=== PATIENT | male | born 1955 | race Caucasian/White ===

== ENCOUNTER 2020-06-25 10:23 | Outpatient (REF) | payer MEDICARE, SELFPAY ==
[2020-06-25 10:29] LABS: MANUAL DIFF FLAG NO
[2020-06-25 10:58] LABS: Basophils Percent Auto 0.7 % (0-2); Eosinophils Absolute Auto 0.4 X10*3/uL (0.0-0.4); Eosinophils Percent Auto 7.7 % (0-4); Hematocrit 41.7 % (42-52); Hemoglobin 13.7 g/dl (14.0-18.0); Imm Gran Abs Auto 0.01 X10*3/uL (0.00-0.03); Imm Gran Pct Auto 0.2 % (0.0-0.4); Lymphocytes Absolute Auto 1.7 X10*3/uL (1.2-4.9); Lymphocytes Percent Auto 31.2 % (20-40); Mean Corpuscular HGB Conc 32.9 g/dl (31.0-36.0); Mean Corpuscular Hemoglobin 31.7 pg (27.0-33.0); Mean Corpuscular Volume 96.5 fL (80-98); Mean Platelet Volume 10.4 fL (9.4-12.4); Monocytes Absolute Auto 0.6 X10*3/uL (0.1-1.2); Monocytes Percent Auto 11.2 % (2-11); Neutrophils Absolute Auto 2.7 X10*3/uL (2.0-8.3); Platelet Count 298 X10*3/uL (160-400); Red Blood Count 4.32 X10*6/uL (4.60-5.80); Red Cell Distribution Width 13.2 % (11.0-16.0); White Blood Count 5.5 X10*3/uL (4.8-10.8)
[2020-06-25 11:08] LABS: Glucose Urine UA NEG (NEG); Leukocyte Esterase Urine NEG (NEG); Nitrite Urine NEG (NEG); Specific Gravity - Urine 1.015 (1.005-1.025); Urine Blood NEG (NEG); Urine Ketones NEG (NEG); Urine Protein NEG (NEG-TRACE)
[2020-06-25 11:11] LABS: Appearance Urine CLEAR; Color Urine YELLOW
[2020-06-25 11:58] LABS: PSA,Total (Free>4and<10) 0.64 ng/mL (0.00-4.00)
[2020-06-25 12:22] LABS: Alanine Aminotransferase 15 U/L (0-40); Albumin Level 4.4 g/dL (3.5-5.0); Alkaline Phosphatase 62 U/L (39-117); Anion Gap 14 (12-20); Aspartate Amino Transferase 17 U/L (5-37); Bilirubin Total 0.9 mg/dL (0.0-1.0); Blood Urea Nitrogen 18 mg/dL (9-16); Calcium 10.5 mg/dL (8.4-10.2); Carbon Dioxide 26 mmol/L (22-29); Chloride 102 mmol/L (96-108); Cholesterol 203 mg/dL; Estimated Glomerular Filt Rate > 60; Glucose Fasting 93 mg/dL (60-99); HDL Cholesterol 91 mg/dL; LDL Cholesterol Calculated 99 mg/dl; Potassium 4.7 mmol/L (3.3-5.1); Sodium 137 mmol/L (135-145); Total Protein 7.1 g/dL (6.5-8.0); Triglycerides 69 mg/dL
== END 2020-06-25 10:24 | disposition home or self-care (01) ==
LOC: HO.LNP 10:23
PROVIDERS: Visit Provider Internal Medicine
DX: Z00.00 Encounter for general adult medical examination without abnormal findings (principal); E21.3 Hyperparathyroidism, unspecified; I10 Essential (primary) hypertension
CPT/HCPCS: 80053; 80061; 81003; 84153; 85025

== ENCOUNTER 2021-07-01 10:39 | Outpatient (REF) | payer MEDICARE, OTHER, SELFPAY ==
[2021-07-01 10:43] LABS: MANUAL DIFF FLAG NO
[2021-07-01 11:15] LABS: Appearance Urine CLEAR; Color Urine YELLOW; Glucose Urine UA NEG (NEG); Leukocyte Esterase Urine NEG (NEG); Nitrite Urine NEG (NEG); PH 6.5 (5.0-8.0); Urine Blood NEG (NEG); Urine Ketones NEG (NEG); Urine Protein NEG (NEG-TRACE)
[2021-07-01 11:16] LABS: Basophils Percent Auto 0.8 % (0-2); Eosinophils Absolute Auto 0.1 X10*3/uL (0.0-0.4); Eosinophils Percent Auto 2.2 % (0-4); Hematocrit 35.6 % (42.0-52.0); Hemoglobin 11.8 g/dl (14.0-18.0); Imm Gran Abs Auto 0.02 X10*3/uL (0.00-0.03); Imm Gran Pct Auto 0.4 % (0.0-0.4); Lymphocytes Absolute Auto 1.7 X10*3/uL (1.2-4.9); Mean Corpuscular HGB Conc 33.1 g/dl (31.0-36.0); Mean Corpuscular Hemoglobin 31.8 pg (27.0-33.0); Mean Platelet Volume 10.4 fL (9.4-12.4); Monocytes Absolute Auto 0.7 X10*3/uL (0.1-1.2); Monocytes Percent Auto 14.4 % (2-11); Neutrophils Absolute Auto 2.3 x10*3/uL (2.0-8.3); Neutrophils Percent Auto 47.2 % (45-73); Platelet Count 301 X10*3/uL (160-400); Red Blood Count 3.71 X10*6/uL (4.60-5.80); Red Cell Distribution Width 13.3 % (11.0-16.0); White Blood Count 4.9 X10*3/uL (4.8-10.8)
[2021-07-01 11:21] LABS: Alanine Aminotransferase 11 U/L (0-40); Alkaline Phosphatase 47 U/L (39-117); Anion Gap 10 (12-20); Aspartate Amino Transferase 17 U/L (5-37); Bilirubin Total 0.6 mg/dL (0.0-1.0); Blood Urea Nitrogen 16 mg/dL (9-16); Calcium 10.1 mg/dL (8.4-10.2); Carbon Dioxide 27 mmol/L (22-29); Chloride 104 mmol/L (96-108); Cholesterol 192 mg/dL; Estimated Glomerular Filt Rate > 60; Glucose Fasting 90 mg/dL (60-99); HDL Cholesterol 78 mg/dL; LDL Cholesterol Calculated 104 mg/dl; Potassium 4.4 mmol/L (3.3-5.1); Sodium 137 mmol/L (135-145); Triglycerides 50 mg/dL
[2021-07-01 11:43] LABS: PSA,Total (Free>4and<10) 0.72 ng/mL (0.00-4.00)
== END 2021-07-01 10:40 | disposition home or self-care (01) ==
LOC: HO.LNP 10:39
PROVIDERS: Visit Provider Internal Medicine
DX: Z12.5 Encounter for screening for malignant neoplasm of prostate (principal); E83.52 Hypercalcemia; I10 Essential (primary) hypertension; N40.0 Benign prostatic hyperplasia without lower urinary tract symptoms
CPT/HCPCS: 80053; 80061; 81003; 84153; 85025

== ENCOUNTER 2021-10-07 13:14 | Outpatient (REF) | payer MEDICARE, OTHER, SELFPAY ==
[2021-10-07 13:16] LABS: MANUAL DIFF FLAG NO
[2021-10-07 13:34] LABS: Basophils Percent Auto 0.7 % (0-2); Eosinophils Absolute Auto 0.2 X10*3/uL (0.0-0.4); Eosinophils Percent Auto 5.3 % (0-4); Hematocrit 43.7 % (42.0-52.0); Hemoglobin 14.6 g/dl (14.0-18.0); Imm Gran Abs Auto 0.01 X10*3/uL (0.00-0.03); Imm Gran Pct Auto 0.2 % (0.0-0.4); Lymphocytes Absolute Auto 1.6 X10*3/uL (1.2-4.9); Lymphocytes Percent Auto 34.5 % (20-40); Mean Corpuscular HGB Conc 33.4 g/dl (31.0-36.0); Mean Corpuscular Hemoglobin 31.1 pg (27.0-33.0); Mean Corpuscular Volume 93.2 fL (80.0-98.0); Mean Platelet Volume 10.3 fL (9.4-12.4); Monocytes Absolute Auto 0.6 X10*3/uL (0.1-1.2); Monocytes Percent Auto 12.7 % (2-11); Neutrophils Absolute Auto 2.1 x10*3/uL (2.0-8.3); Neutrophils Percent Auto 46.6 % (45-73); Platelet Count 282 X10*3/uL (160-400); Red Blood Count 4.69 X10*6/uL (4.60-5.80); White Blood Count 4.6 X10*3/uL (4.8-10.8)
[2021-10-07 13:46] LABS: Iron 76 mcg/dL (45-160); Percent Iron Saturation 23 % (15-50); Total Iron Binding Capacity 332 mcg/dL (228-428); Unsaturated Iron Binding 256 ug/dL
== END 2021-10-07 13:15 | disposition home or self-care (01) ==
LOC: HO.LNP 13:14
PROVIDERS: Visit Provider Internal Medicine
DX: D64.9 Anemia, unspecified (principal)
CPT/HCPCS: 83540; 85025

== ENCOUNTER 2022-07-03 10:35 | Outpatient (REF) | payer MEDICARE, OTHER, SELFPAY ==
[2022-07-03 10:39] LABS: MANUAL DIFF FLAG NO
[2022-07-03 11:04] LABS: Basophils Absolute Auto 0.1 X10*3/uL (0.0-0.2); Eosinophils Absolute Auto 0.2 X10*3/uL (0.0-0.4); Eosinophils Percent Auto 4.6 % (0-4); Hematocrit 43.1 % (42.0-52.0); Hemoglobin 14.2 g/dl (14.0-18.0); Imm Gran Abs Auto 0.01 X10*3/uL (0.00-0.03); Imm Gran Pct Auto 0.2 % (0.0-0.4); Lymphocytes Absolute Auto 1.7 X10*3/uL (1.2-4.9); Lymphocytes Percent Auto 34.2 % (20-40); Mean Corpuscular HGB Conc 32.9 g/dl (31.0-36.0); Mean Corpuscular Hemoglobin 31.1 pg (27.0-33.0); Mean Corpuscular Volume 94.3 fL (80.0-98.0); Mean Platelet Volume 10.2 fL (9.4-12.4); Monocytes Absolute Auto 0.6 X10*3/uL (0.1-1.2); Monocytes Percent Auto 12.3 % (2-11); Neutrophils Absolute Auto 2.4 x10*3/uL (2.0-8.3); Neutrophils Percent Auto 47.7 % (45-73); Platelet Count 320 X10*3/uL (160-400); Red Blood Count 4.57 X10*6/uL (4.60-5.80); Red Cell Distribution Width 13.3 % (11.0-16.0)
[2022-07-03 11:06] LABS: Appearance Urine Clear; Color Urine Yellow; Glucose Urine UA Negative (Negative); Leukocyte Esterase Urine Negative (Negative); Nitrite Urine Negative (Negative); PH 6.5 (5.0-9.0); Specific Gravity - Urine 1.015 (1.005-1.025); Urine Blood Negative (Negative); Urine Ketones Negative (Negative); Urine Protein Trace mg/dL (Neg-Trace)
[2022-07-03 11:11] LABS: Bacteria Urine None Seen (None Seen); Hyaline Casts Urine 0-2 /LPF (0-2); RBC Urine 0-2 /HPF (0-2); Squamous Epithelial Cell Urine 0-2 /HPF (0-2); WBC Urine 0-5 /HPF (0-5)
[2022-07-03 11:35] LABS: Alanine Aminotransferase 14 U/L (0-40); Alkaline Phosphatase 66 U/L (39-117); Anion Gap 12 (12-20); Aspartate Amino Transferase 16 U/L (5-37); Bilirubin Total 0.8 mg/dL (0.0-1.0); Blood Urea Nitrogen 13 mg/dL (9-16); Calcium 10.2 mg/dL (8.4-10.2); Carbon Dioxide 27 mmol/L (22-29); Chloride 103 mmol/L (96-108); Cholesterol 200 mg/dL; Estimated Glomerular Filt Rate > 60; Glucose Fasting 87 mg/dL (60-99); HDL Cholesterol 84 mg/dL; LDL Cholesterol Calculated 104 mg/dl; Potassium 4.8 mmol/L (3.3-5.1); Sodium 137 mmol/L (135-145); Total Protein 6.6 g/dL (6.5-8.0); Triglycerides 61 mg/dL
[2022-07-03 11:50] LABS: PSA,Total (Free>4and<10) 0.73 ng/mL (0.00-4.00)
== END 2022-07-03 10:36 | disposition home or self-care (01) ==
LOC: HO.LNP 10:35
PROVIDERS: Visit Provider Internal Medicine
DX: Z12.5 Encounter for screening for malignant neoplasm of prostate (principal); N40.0 Benign prostatic hyperplasia without lower urinary tract symptoms; I10 Essential (primary) hypertension; E21.3 Hyperparathyroidism, unspecified
CPT/HCPCS: 80053; 80061; 81001; 84153; 85025

== ENCOUNTER 2023-06-29 11:11 | Outpatient (REF) | payer MEDICARE, OTHER, SELFPAY ==
[2023-06-29 11:17] LABS: MANUAL DIFF FLAG NO
[2023-06-29 12:07] LABS: Basophils Percent Auto 0.6 % (0-2); Eosinophils Absolute Auto 0.2 X10*3/uL (0.0-0.4); Eosinophils Percent Auto 3.5 % (0-4); Hematocrit 44.5 % (42.0-52.0); Hemoglobin 15.1 g/dl (14.0-18.0); Imm Gran Abs Auto 0.02 X10*3/uL (0.00-0.03); Imm Gran Pct Auto 0.4 % (0.0-0.4); Lymphocytes Absolute Auto 1.6 X10*3/uL (1.2-4.9); Lymphocytes Percent Auto 33.1 % (20-40); Mean Corpuscular HGB Conc 33.9 g/dl (31.0-36.0); Mean Corpuscular Hemoglobin 32.3 pg (27.0-33.0); Mean Corpuscular Volume 95.3 fL (80.0-98.0); Mean Platelet Volume 10.4 fL (9.4-12.4); Monocytes Absolute Auto 0.7 X10*3/uL (0.1-1.2); Monocytes Percent Auto 13.6 % (2-11); Neutrophils Absolute Auto 2.4 x10*3/uL (2.0-8.3); Neutrophils Percent Auto 48.8 % (45-73); Platelet Count 329 X10*3/uL (160-400); Red Blood Count 4.67 X10*6/uL (4.60-5.80); Red Cell Distribution Width 12.6 % (11.0-16.0); White Blood Count 4.9 X10*3/uL (4.8-10.8)
[2023-06-29 12:09] LABS: Appearance Urine Clear; Color Urine Yellow; Glucose Urine UA Negative (Negative); Leukocyte Esterase Urine Negative (Negative); Nitrite Urine Negative (Negative); Specific Gravity - Urine 1.015 (1.005-1.025); Urine Blood Negative (Negative); Urine Ketones Negative (Negative); Urine Protein Trace mg/dL (Neg-Trace)
[2023-06-29 12:12] LABS: Bacteria Urine None Seen (None Seen); Hyaline Casts Urine 0-2 /LPF (0-2); RBC Urine 0-2 /HPF (0-2); Squamous Epithelial Cell Urine 0-2 /HPF (0-2); WBC Urine 0-5 /HPF (0-5)
[2023-06-29 12:50] LABS: PSA,Total (Free>4and<10) 0.67 ng/mL (0.00-4.00)
[2023-06-29 13:04] LABS: Alanine Aminotransferase 13 U/L (0-40); Albumin Level 4.3 g/dL (3.5-5.0); Alkaline Phosphatase 59 U/L (39-117); Anion Gap 13 (12-20); Aspartate Amino Transferase 19 U/L (5-37); Bilirubin Total 0.9 mg/dL (0.0-1.0); Blood Urea Nitrogen 15 mg/dL (9-16); Calcium 10.6 mg/dL (8.4-10.2); Carbon Dioxide 25 mmol/L (22-29); Chloride 101 mmol/L (96-108); Cholesterol 215 mg/dL (<200); Estimated Glomerular Filt Rate > 60; Glucose Fasting 94 mg/dL (60-99); HDL Cholesterol 90 mg/dL (>40); LDL Cholesterol Calculated 111 mg/dL (<100); Potassium 4.9 mmol/L (3.3-5.1); Sodium 134 mmol/L (135-145); Total Protein 7.4 g/dL (6.5-8.0); Triglycerides 73 mg/dL (<150)
== END 2023-06-29 11:12 | disposition home or self-care (01) ==
LOC: HO.LNP 11:11
PROVIDERS: Visit Provider Internal Medicine
DX: Z12.5 Encounter for screening for malignant neoplasm of prostate (principal); I10 Essential (primary) hypertension; N40.0 Benign prostatic hyperplasia without lower urinary tract symptoms; E83.52 Hypercalcemia
CPT/HCPCS: 80053; 80061; 81001; 84153; 85025

== ENCOUNTER 2024-08-05 09:55 | Outpatient (REF) | payer MEDICARE, OTHER, SELFPAY ==
[2024-08-05 09:58] LABS: MANUAL DIFF FLAG NO
[2024-08-05 10:06] LABS: Basophils Percent Auto 0.8 % (0-2); Eosinophils Absolute Auto 0.1 X10*3/uL (0.0-0.4); Eosinophils Percent Auto 2.1 % (0-4); Hematocrit 42.3 % (42.0-52.0); Hemoglobin 14.3 g/dl (14.0-18.0); Imm Gran Abs Auto 0.01 X10*3/uL (0.00-0.03); Imm Gran Pct Auto 0.2 % (0.0-0.4); Lymphocytes Absolute Auto 1.6 X10*3/uL (1.2-4.9); Lymphocytes Percent Auto 31.2 % (20-40); Mean Corpuscular HGB Conc 33.8 g/dl (31.0-36.0); Mean Corpuscular Volume 94.6 fL (80.0-98.0); Mean Platelet Volume 10.2 fL (9.4-12.4); Monocytes Absolute Auto 0.7 X10*3/uL (0.1-1.2); Monocytes Percent Auto 13.1 % (2-11); Neutrophils Absolute Auto 2.7 x10*3/uL (2.0-8.3); Neutrophils Percent Auto 52.6 % (45-73); Platelet Count 349 X10*3/uL (160-400); Red Blood Count 4.47 X10*6/uL (4.60-5.80); Red Cell Distribution Width 12.4 % (11.0-16.0); White Blood Count 5.2 X10*3/uL (4.8-10.8)
[2024-08-05 10:07] LABS: Appearance Urine Clear; Color Urine Yellow; Glucose Urine UA Negative (Negative); Leukocyte Esterase Urine Negative (Negative); Nitrite Urine Negative (Negative); Specific Gravity - Urine 1.015 (1.005-1.025); Urine Blood Negative (Negative); Urine Ketones Negative (Negative); Urine Protein Trace mg/dL (Neg-Trace)
[2024-08-05 10:14] LABS: Bacteria Urine None Seen (None Seen); Hyaline Casts Urine 0-2 /LPF (0-2); RBC Urine 0-2 /HPF (0-2); Squamous Epithelial Cell Urine 0-2 /HPF (0-2); WBC Urine 0-5 /HPF (0-5)
[2024-08-05 10:26] LABS: Alanine Aminotransferase 18 U/L (0-40); Albumin Level 4.3 g/dL (3.5-5.0); Alkaline Phosphatase 52 U/L (39-117); Anion Gap 9 (12-20); Aspartate Amino Transferase 25 U/L (5-37); Bilirubin Total 0.5 mg/dL (0.0-1.0); Blood Urea Nitrogen 13 mg/dL (9-16); Calcium 10.2 mg/dL (8.4-10.2); Carbon Dioxide 29 mmol/L (22-29); Chloride 102 mmol/L (96-108); Cholesterol 211 mg/dL (<200); Estimated Glomerular Filt Rate > 60; Glucose Fasting 93 mg/dL (60-99); HDL Cholesterol 85 mg/dL (>40); LDL Cholesterol Calculated 115 mg/dL (<100); Potassium 5.1 mmol/L (3.3-5.1); Sodium 135 mmol/L (135-145); Total Protein 6.9 g/dL (6.5-8.0); Triglycerides 59 mg/dL (<150)
[2024-08-05 10:38] LABS: PSA,Total (Free>4and<10) 1.36 ng/mL (0.00-4.00)
--- OUTSIDE RECORDS SUMMARY | 2024-08-05 11:15 | XMS_ITS | Patient Health Record ---
Author Organization Cristian Pope MD Address [address] [place], [place] [id number] Care Team Providers Care Roll Trucker Name Role Phone Cristian Pope Primary Care Provider [phone] Allergies Allergen (clinical drug ingredient) Drug/Non Drug Allergy documented on EMR Reaction Allergy Type Onset Date Status valsartan Diovan hyperkalemia Drug Allergy Acti ve Results Component Value Reference Range Notes Complete Blood Count Auto Di ff (Not yet reviewed by provider) Interpretation: Performing Lab:[facility], [address] [place] [id number] Notes/Report: White Blood Count 5.2 4.8-10.8 X10*3/uL Red Blood Count 4.47 4.60-5.80 X10*6/uL Hemoglobin 14.3 14.0-18.0 g/dl Hematocrit 42.3 42.0-52.0 % Mean Corpuscular Volume 94.6 80.0-98.0 fL Mean Corpuscular Hemoglobin 32.0 27.0-33.0 pg Mean Corpuscular HGB Conc 33.8 31.0-36.0 g/dl Red Cell Distribution Width 12.4 11.0-16.0 % Platelet Count 349 160-400 X10*3/uL Mean Platelet Volume 10.2 9.4-12.4 fL Neutrophils Percent Auto 52.6 45-73 % Imm Gran Pct Auto 0.2 0.0-0.4 % Lymphocytes Percent Auto 31.2 20-40 % Monocytes Percent Auto 13.1 2-11 % Eosinophils Percent Auto 2.1 0-4 % Basophils Percent Auto 0.8 0-2 % NRBC Pct Auto 0.0 0.0-0.2 /100WBC Neutrophils Absolute Auto 2.7 2.0-8.3 x10*3/u L Imm Gran Abs Auto 0.01 0.00-0.03 X10*3/uL Lymphocytes Absolute Auto 1.6 1.2-4.9 X10*3/u L Monocytes Absolute Auto 0.7 0.1-1.2 X10*3/uL Eosinophils Absolute Auto 0.1 0.0-0.4 X10*3/u L Basophils Absolute Auto 0.0 0.0-0.2 X10*3/uL NRBC Abs Auto 0.000 0.0-0.012 X10*3/uL Comprehensive [place]. Panel Fa st (Not yet reviewed by provider) Interpretation: Performing Lab:[facility], [address] [place] [phone] Notes/Report: Sodium 135 135-145 mmol/L Potassium 5.1 3.3-5.1 mmol/L Chloride 102 96-108 mmol/L Carbon Dioxide 29 22-29 mmol/L Anion Gap 9 12-20 Blood Urea Nitrogen 13 9-16 mg/dL Creatinine 1.00 0.5-1.4 mg/dL Estimated Glomerular Filt Rate > 60 Chronic Kidney Disease: Estimated GFR < 60 mL/min/1.73m2 Severe Kidney Disease: Estimated GFR < 15 mL/min/1.73m2 Glucose Fasting 93 60-99 mg/dL Calcium 10.2 8.4-10.2 mg/dL Bilirubin Total 0.5 0.0-1.0 mg/dL Aspartate Amino Transferase 25 5-37 U/L Alanine Aminotransferase 18 0-40 U/L Total Protein 6.9 6.5-8.0 g/dL Albumin Level 4.3 3.5-5.0 g/dL Alkaline Phosphatase 52 39-117 U/L Lipid Panel (Not yet reviewe d by provider) Interpretation: Performing Lab:[address] [phone] Notes/Report: Triglycerides 59 <150 mg/dL Desirable Triglyceride: less than 150 mg/dL Borderline High Triglyceride 150-199 mg/dL High Triglyceride: 200-499 mg/dL Very High Triglyceride: greater than or equal to 5OO mg/dL Cholesterol 211 <200 mg/dL Desirable Cholesterol: less than 200 mg/dL Borderline High Cholesterol: 200-239 mg/dL High Cholesterol: greater than 239 mg/dL LDL Cholesterol Calculated 115 <100 mg/dL Desirable LDL: less than 100 mg/dL Near Optimal/Above Optimal LDL: 110-129 mg/dL Borderline High LDL: 130-159 mg/dL High LDL: 160-189 mg/dL Very High LDL: greater than or equal to 190 mg/dL HDL Cholesterol 85 >40 mg/dL Desirable HDL: greater than 40 mg/dL Note: This HDL assay may give artificially low results in patients with liver disease. PSA,Total (Free>4and<10) (No t yet reviewed by provider) Interpretation: Performing Lab:[address] [phone] Notes/Report: PSA,Total (Free>4and<10) 1.36 0.00-4.00 ng/mL A Free PSA was not performed: The percentage of Free PSA can be used to enhance the differentiation of prostate cancer from benign prostatic disease in subjects whose PSA levels are between 4.0 and 10.0 ng/mL. For subjects whose PSA levels are below 4.0 or above 10.0 ng/mL, the risk of prostate cancer is determined on the basis of the PSA alone. Therefore the % Free PSA is recommended only for those subjects whose PSA levels are between 4.0 and 10.0 ng/mL. PSA methodology: Rodriguez Alinity i Chemiluminescent Microparticle Immunoassay (CMIA) UA ClnCatch+Micro w/rflx Cul t (Not yet reviewed by provider) Interpretation: Performing Lab:[address] [phone] Notes/Report: Urine, Clean Catch Color Urine Yellow Appearance Urine Clear PH 8.0 5.0-9.0 Glucose Urine UA Negative Negative mg/dL Urine Blood Negative Negative Specific [place] - Urine 1.015 1.005-1.025 Urine Protein Trace Neg-Trace mg/dL Urine Ketones Negative Negative mg/dL Nitrite Urine Negative Negative Leukocyte Esterase Urine Negative Negative RBC Urine 0-2 0-2 /HPF WBC Urine 0-5 0-5 /HPF Squamous Epithelial Cell Urine 0-2 0-2 /HPF Bacteria Urine None Seen None Seen Hyaline Casts Urine 0-2 0-2 /LPF Occult Blood, Stool, Guaiac Reviewed date:08/06/2023 02:01:37 PM Interpretation:Negative Performing Lab: Notes/Report: Negative Occult Blood, Stool, Guaiac Neg Reason For Referral No Information Medications Medication SIG (Take, Route, Frequency, Duration) Notes Start Date End Date Status amLODIPine Besylate 10 mg TAKE 1 TABLET DAILY Orally Once a day Active Fish Oil 500 MG 2 capsule Orally Onc e a day for 30 day(s) Active Montelukast Sodium 10 mg TAKE 1 TABLET D AILY IN THE EVENING Orally Once a day for 90 days Active Immunizations Vaccine Route Administration Date Status Comme nts DECLINED, FLU Unknown 03/04/2013 Administered TDaP IM Intramuscular 03/07/2017 Administered Pt was given the vaccine at [facility]. PPSV23 (Pnemovax) IM Intramuscular 06/14/2017 Administered Shingrix IM Intramuscular 08/06/2017 Administered Shingrix IM Intramuscular 11/06/2017 Administered PPSV23 (Pnemovax) IM Intramuscular 06/20/2018 Administered Tetanus Unknown 03/07/2017 Administered Shingles Unknown 11/06/2017 Administered Fluarix Quadrivalent IM Intramuscular 11/19/2019 Administered SARS-COV-2 Moderna Unknown 04/27/2020 Administered SARS-COV-2 Moderna Unknown 05/25/2020 Administered SARS-COV-2 Moderna Unknown 12/29/2020 Administered Fluarix Quadrivalent IM Intramuscular 12/30/2020 Administered Fluarix Quadrivalent Unknown 11/14/2022 Administered SARS-COV-2 Moderna Unknown 11/14/2022 Administered Fluarix Quadrivalent Unknown 04/24/2014 Refused PPSV23 (Pnemovax) Unknown 10/16/2014 Refused Flu Vaccine Unknown 12/21/2014 Refused Flu Vaccine Unknown 05/03/2015 Refused Fluarix Quadrivalent Unknown 11/23/2015 Refused Fluarix Quadrivalent Unknown 11/13/2016 Refused Fluarix Quadrivalent Unknown 11/06/2017 Refused Fluarix Quadrivalent Unknown 12/19/2018 Refused PPSV23 (Pnemovax) Unknown 01/12/2020 Refused Flu Vaccine Unknown 04/24/2014 Pending Social History Tobacco Use: Social History Observation Description Date Details (start date - stop date) Never Smoker NA - NA Tobacco Use/Smoking Question Answer Notes Patient is a nonsmoker Additional Findings: Tobacco Non-User Cu rrent non-smoker, currently using no form of tobacco Alcohol Screen Question Answer Notes Did you have a drink contain ing alcohol in the past year? Yes How often did you have a dri nk containing alcohol in the past year? 4 or more times a week (4 points) How many drinks did you have on a typical day when you were drinking in the past year? 1 or 2 drinks (0 point) How often did you have 6 or more drinks on one occasion in the past year? Never (0 point) Points 4 Interpretation Positive Problems Problem Type SNOMED Code ICD Code Onset Dates Problem Status W/U Status Risk Notes Problem 21999364 Prostatism (N40.0) Active confirmed Problem 42750322 Hyperparathyroid i sm, unspecified (E21.3) Active confirmed Problem 22969292 Hypercalcemia (E83.52) Active confirmed Problem 466981219 Exercise induced bronchospasm (J45.990) Active confirmed Problem 37243618 Essential hypertension (I10) Active confirmed Problem 256619714 Mild intermitten t asthma with acute exacerbation (J45.21) Active confirmed Problem 34207954 Exercise-induced asthma (J45.990) Active confirmed Problem 1081119763481 Adenomatous rectal polyp (D12.8) Active confirmed Problem 45047017 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 Problem 712062848 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 Vital Signs Blood pressure diastolic 80 mm Hg 02/07/2024 car ght is up 3 pounds since 08-06-23 Height 71 in 02/07/2024 weight is up 3 pounds since 08-06-23 Blood pressure systolic 124 mm Hg 02/07/2024 weig ht is up 3 pounds since 08-06-23 Weight 172 lbs 02/07/2024 weight is up 3 pounds since 08-06-23 BMI 23.99 kg/m2 02/07/2024 weight is up 3 pounds since 08-06-23 Encounters Encounter Location Date Provider Diagnosis Cristian Pope MD [address] [place] [address] [address] [place] [id number] 08/05/2024 Cristian Pope Essential hypertension I10 ; Prostatism N40.0 and Hypercalcemia E83.52 Cristian Pope MD [address] [place] [address] [id number] 08/06/2023 Cristian Pope Hypercalcemia E83.52 ; Hyperparathyroidism, unspecified E21.3 ; Essential hypertension I10 ; Colon cancer screening Z12.11 and Depression screening Z13.31 Cristian Pope MD [address] [place] [id number] 02/07/2024 Cristian Pope Essential hypertension I10 Cristian Pope MD [address] [place] [id number] 10/22/2023 Cristian Pope Essential hypertension I10 and Mild intermittent asthma with acute exacerbation J45.21 Assessments Encounter Date Diagnosis (ICD Code) Assessment Notes Treatment Notes Treatment Clinical Notes Section Notes 08/05/2024 Essential hypertension (ICD-10 - I10) 08/06/2023 Hypercalcemia (ICD-10 - E83.52) stable, will continue to monitor 08/06/2023 Hyperparathyroidis m, unspecified (ICD-10 - E21.3) stable, will cpntinue to monitor 02/07/2024 Essential hypertension (ICD-10 - I10) BP is stable , at goal, will continue current regiment and continue to monitor 10/22/2023 Essential hypertension (ICD-10 - I10) 08/05/2024 Prostatism (ICD-10 - N40.0) 08/06/2023 Essential hypertension (ICD-10 - I10) well controlled, will continue current regiment 10/22/2023 Mild intermittent asthma with acute exacerbation (ICD-10 - J45.21) 08/05/2024 Hypercalcemia (ICD-10 - E83.52) 08/06/2023 Colon cancer screening (ICD-10 - Z12.11) guaiac negative 08/06/2023 Depression screening (ICD-10 - Z13.31) negative screen Plan Of Treatment Pending Test Test Name Order Date Electrocardiogram (EKG) 12/29/2010 Electrocardiogram (EKG) 05/13/2015 Electrocardiogram (EKG) 06/20/2018 Complete Blood Count Auto Diff 5 Comprehensive [place]. Panel Fast 5 Lipid Panel 08/05/2024 PSA,Total (Free>4and<10) 08/05/2024 UA ClnCatch+Micro w/rflx Cult 08/05/2024 Future Test Test Name Order Date BONE DENSITY DEXA 12/26/2019 Next Appt Details Provider Name:Cristian Denise ier, 08/08/2024 11:00:00 AM, [address] [facility], [address], [place], [place], [id number], Insurance Providers Payer Name Payer Address Payer Phone Subscriber Number Group Number Insured Name Patient Relationship to Insured Coverage Start Date Coverage End Date MEDICARE [employer] [place] [address] [place] [address] [id number] Stephania Lundy Self - patient is the insured [address] [place] [phone] [phone] [id number] Stephania Lundy Self - patient is the insured Medical (General) History Medical History History ICD Code on 10 mg of amlodipine in past with exce ss sweating, got light headed HYPERKALEMIA ON DIOVAN colonoscopy 04/04/11 due in te n years per patient repeat 2021. Dr. Tompkins at [facility] 2022 repeat in 10 years Refuses flu [id number] history of parathyroidectomy
== END 2024-08-05 09:56 | disposition home or self-care (01) ==
LOC: HO.LNP 09:55
PROVIDERS: Visit Provider Internal Medicine
DX: I10 Essential (primary) hypertension (principal); N40.0 Benign prostatic hyperplasia without lower urinary tract symptoms; E83.52 Hypercalcemia
CPT/HCPCS: 80053; 80061; 81001; 84153; 85025